=== PATIENT | female | born 1960 | race Caucasian/White ===

== ENCOUNTER 2016-10-22 12:50 | Emergency (ER) | payer OTHER ==
[~2016-10-22] VITALS: Ht 160 cm; Wt 68.0 kg
[2016-10-22 12:50] VITALS: BP_SYST 145
[~2016-10-22 12:50] MED LIST: CIPRO; TRAM50TA92 PO
[2016-10-22] MEDS ORDERED: ACET-1010 PO (13:31)
[2016-10-22] MEDS ORDERED: NEBI5TAB3 PO (13:31)
[2016-10-22] MEDS ORDERED: NEPH PO (13:31)
[2016-10-22] MEDS ORDERED: DOCU-144 PO (13:31)
[2016-10-22] MEDS ORDERED: AMLO5TAB4 PO (13:31)
[2016-10-22] MEDS ORDERED: SENN8.6T19 PO (13:31)
[2016-10-22] MEDS ORDERED: [UNRECOGNIZED DRUG - CODE] PO (13:31)
[2016-10-22] MEDS ORDERED: CAT.1 PO (13:31)
[2016-10-22] MEDS ORDERED: LOSA100T11 PO (13:31)
[2016-10-22] MEDS ORDERED: LEVO150T8 PO (13:31)
[2016-10-22] MEDS ORDERED: DIVA500T7 PO (13:31)
[2016-10-22] MEDS ORDERED: ACETAMINOPHEN 500 MG TABLET PO ONE (14:15)
[2016-10-22] MEDS ORDERED: LORazepam 2 MG/ML VIAL (FOR ER USE) IM ONE (14:15)
[2016-10-22 16:25] VITALS: BP_SYST 125
== END 2016-10-22 16:25 | disposition home or self-care (01) ==
LOC: SED 12:50
DX: M94.0 Chondrocostal junction syndrome [Tietze] (principal); Z88.0 Allergy status to penicillin
CPT/HCPCS: 96372; 99283; J2060

== ENCOUNTER 2018-04-04 15:11 | Emergency (ER) | payer BC, OTHER ==
[~2018-04-04] VITALS: Ht 160 cm; Wt 72.6 kg
[2018-04-04 15:21] VITALS: BP_SYST 117
[2018-04-04] MEDS ORDERED: PROMETHAZINE 6.25 MG/ CODEINE 10 MG/ 5 ML PO ONE (15:30)
[2018-04-04] MEDS ORDERED: IPRATROPIUM/ALBUTEROL SULFATE 3 ML AMPUL.NEB (DUONEB) INH ONE (15:30)
[2018-04-04] MEDS ORDERED: PREDNISONE 20 MG TABLET PO ONE (16:00)
[2018-04-04 17:05] VITALS: BP_SYST 134
== END 2018-04-04 17:05 | disposition home or self-care (01) ==
LOC: SED 15:11
DX: J20.9 Acute bronchitis, unspecified (principal); R03.0 Elevated blood-pressure reading, without diagnosis of hypertension; E11.9 Type 2 diabetes mellitus without complications; Z88.0 Allergy status to penicillin
CPT/HCPCS: 71045; 82962; 94640; 99283; J7512; J7620

== ENCOUNTER 2023-05-17 15:15 | Inpatient (IN) | payer BC ==
[~2023-05-17] VITALS: Ht 160 cm; Wt 72.6 kg
[2023-05-17 15:15] VITALS: BP_SYST 139; PULSE 89; RESP 19; TEMP 98.2; O2SAT 99
[~2023-05-17 15:15] MED LIST changes: -CIPRO; +IBUP-1969 PO; +OSEL75CA PO; +PHEDM120 PO; -TRAM50TA92 PO
[2023-05-17 15:51] LABS: BASOPHILS # (AUTO) 0.1 K/uL (0.0-0.2); BASOPHILS % (AUTO) 0.7 % (0.0-2.0); EOSINOPHILS # (AUTO) 0.1 K/uL (0.0-0.4); EOSINOPHILS % (AUTO) 1.1 % (0.0-4.0); HEMOGLOBIN 15.9 g/dL (12.0-16.0); LYMPHOCYTES # (AUTO) 2.8 K/uL (1.0-5.5); LYMPHOCYTES % (AUTO) 24.4 % (20.5-51.5); MEAN CORPUSCULAR HEMOGLOBIN 31 pg (27-31); MEAN CORPUSCULAR HGB CONC 34 % (32-36); MEAN CORPUSCULAR VOLUME 91 fL (79.0-98.0); MONOCYTES # (AUTO) 0.7 K/uL (0.0-1.0); MONOCYTES % (AUTO) 6.5 % (1.7-9.3); NEUTROPHILS # (AUTO) 7.6 K/uL (1.8-7.7); NEUTROPHILS % (AUTO) 67.3 % (40.0-70.0); PLATELET COUNT (AUTO) 350 K/uL (130-430); RED BLOOD CELL COUNT(AUTO) 5.19 MIL/uL (4.2-6.2); RED CELL DISTRIBUTION WIDTH 13.9 % (9.0-15.0); WHITE BLOOD COUNT (AUTO) 11.4 K/uL (4.8-10.8)
[2023-05-17] MEDS: NACL 0.9% 1,000 ML IV ONE (15:53)
[2023-05-17] MEDS: MORPHINE 2 MG/ML INJ. SYRINGE IVP ONE (15:54)
[2023-05-17] MEDS: ONDANSETRON HCL 4 MG/2 ML VIAL IVP ONE (15:54)
[2023-05-17 16:17] LABS: CALCIUM 9.6 mg/dL (8.4-11.0); CREATININE 0.94 mg/dL (0.55-1.30); POTASSIUM 3.3 mmol/L (3.5-5.1)
[2023-05-17] MEDS: MEROPENEM 1 GM in NS 100 ML IV ONE (16:45)
[2023-05-17] MEDS ORDERED: MEROPENEM 500 MG VIAL IV ONE (18:43)
[2023-05-17] MEDS: ONDANSETRON HCL 4 MG/2 ML VIAL IVP PRN (18:54)
[2023-05-17] MEDS: MORPHINE 4 MG INJ. 4 MG/ML VIAL IVP PRN (18:54)
[2023-05-17] MEDS ORDERED: PRED10TA (19:57)
[2023-05-17] MEDS ORDERED: AMLO5TAB92 PO (19:57)
[2023-05-17] MEDS ORDERED: LOSA50TA28 PO (19:57)
[2023-05-17] MEDS ORDERED: SEMA2PEN SUBCUT (19:57)
[2023-05-17] MEDS ORDERED: METF-381 PO (19:57)
[2023-05-17] MEDS ORDERED: ONDA-8 SL (19:57)
[2023-05-17] MEDS: D5/0.45 NS 1,000 ML IV SCH (19:58)
[2023-05-17 22:32] VITALS: BP_SYST 135; PULSE 91; RESP 16; TEMP 97.5
[2023-05-17] MEDS: metroNIDAZOLE 250 mg/NS 50 ML IV SCH (22:54)
[2023-05-18] VITALS (7 sets, daily range): BP systolic 113–138; PULSE 78–91; RESP 16–18; TEMP 97.8–98.9; O2SAT 91–98
[2023-05-18] MEDS: MEROPENEM 500 MG in NS 50 ML IV SCH (09:01)
[2023-05-18] MEDS ORDERED: NOR10 PO (10:58)
[2023-05-18] MEDS ORDERED: D5W 1,000 ML IV PRN (12:15)
[2023-05-18] MEDS ORDERED: GLUCOSE (DEXTROSE) ORAL GEL -Adults PO PRN (12:15)
[2023-05-18] MEDS ORDERED: DEXTROSE 50% JECT 50 ML DISP.SYRIN IVP PRN (12:15)
[2023-05-18] MEDS: KCL 20 mEq in 100 mL (PREMIX) 100 ML IV ONE (12:41)
[2023-05-18] MEDS: MORPHINE 2 MG/ML INJ. SYRINGE IVP PRN (16:12)
[2023-05-18] MEDS: INSULIN REGULAR, HUMAN 100 UNITS/ML, 3 ML VIAL (humuLIN R) SUBCUT PRN (17:07)
[2023-05-19] VITALS: BP_SYST 135; PULSE 96; RESP 18; TEMP 98.8; O2SAT 95
[2023-05-19 05:23] LABS: BASOPHILS % (AUTO) 0.7 % (0.0-2.0); EOSINOPHILS # (AUTO) 0.2 K/uL (0.0-0.4); EOSINOPHILS % (AUTO) 2.5 % (0.0-4.0); HEMATOCRIT 38.9 % (36-48); LYMPHOCYTES % (AUTO) 30.4 % (20.5-51.5); MEAN CORPUSCULAR HEMOGLOBIN 30 pg (27-31); MEAN CORPUSCULAR HGB CONC 34 % (32-36); MEAN CORPUSCULAR VOLUME 91 fL (79.0-98.0); MONOCYTES # (AUTO) 0.6 K/uL (0.0-1.0); MONOCYTES % (AUTO) 9.7 % (1.7-9.3); NEUTROPHILS # (AUTO) 3.8 K/uL (1.8-7.7); NEUTROPHILS % (AUTO) 56.7 % (40.0-70.0); PLATELET COUNT (AUTO) 287 K/uL (130-430); RED CELL DISTRIBUTION WIDTH 13.7 % (9.0-15.0); WHITE BLOOD COUNT (AUTO) 6.6 K/uL (4.8-10.8)
[2023-05-19 05:41] LABS: CALCIUM 8.3 mg/dL (8.4-11.0); CREATININE 0.56 mg/dL (0.55-1.30); POTASSIUM 3.2 mmol/L (3.5-5.1)
[2023-05-19 09:45] VITALS: O2SAT 96
[2023-05-19 12:50] VITALS: BP_SYST 108; PULSE 68; RESP 18; TEMP 98.2; O2SAT 93
[2023-05-19 16:25] VITALS: BP_SYST 123; PULSE 73; RESP 18; TEMP 97.9; O2SAT 99
[2023-05-19 20:00] VITALS: BP_SYST 140; PULSE 83; RESP 18; TEMP 98.5; O2SAT 95
[2023-05-20 00:23] VITALS: BP_SYST 137; PULSE 77; RESP 18; TEMP 97.3; O2SAT 97
[2023-05-20 07:48] VITALS: O2SAT 93
[2023-05-20 08:00] VITALS: BP_SYST 119; PULSE 79; RESP 17; TEMP 98; O2SAT 98
[2023-05-20 12:00] VITALS: BP_SYST 120; PULSE 55; RESP 18; TEMP 98.4; O2SAT 99
[2023-05-20] MEDS: POTASSIUM CHLORIDE 20 MEQ TABLET.ER PO ONE (13:31)
[2023-05-20 16:23] VITALS: BP_SYST 103; PULSE 78; RESP 16; TEMP 98.2; O2SAT 99
[2023-05-20 20:00] VITALS: BP_SYST 126; PULSE 82; RESP 18; TEMP 98.8; O2SAT 95
[2023-05-21 00:15] VITALS: BP_SYST 113; PULSE 71; RESP 16; TEMP 97.9; O2SAT 94
[2023-05-21 05:35] LABS: BASOPHILS % (AUTO) 0.5 % (0.0-2.0); EOSINOPHILS # (AUTO) 0.2 K/uL (0.0-0.4); EOSINOPHILS % (AUTO) 2.7 % (0.0-4.0); HEMATOCRIT 40.1 % (36-48); HEMOGLOBIN 13.4 g/dL (12.0-16.0); LYMPHOCYTES # (AUTO) 2.3 K/uL (1.0-5.5); LYMPHOCYTES % (AUTO) 32.5 % (20.5-51.5); MEAN CORPUSCULAR HEMOGLOBIN 30 pg (27-31); MEAN CORPUSCULAR HGB CONC 33 % (32-36); MEAN CORPUSCULAR VOLUME 91 fL (79.0-98.0); MONOCYTES # (AUTO) 0.7 K/uL (0.0-1.0); NEUTROPHILS # (AUTO) 3.8 K/uL (1.8-7.7); NEUTROPHILS % (AUTO) 54.3 % (40.0-70.0); PLATELET COUNT (AUTO) 320 K/uL (130-430); RED BLOOD CELL COUNT(AUTO) 4.39 MIL/uL (4.2-6.2); RED CELL DISTRIBUTION WIDTH 13.6 % (9.0-15.0)
[2023-05-21 05:50] LABS: CALCIUM 8.2 mg/dL (8.4-11.0); CREATININE 0.59 mg/dL (0.55-1.30); POTASSIUM 3.2 mmol/L (3.5-5.1)
[2023-05-21 08:07] VITALS: O2SAT 93
[2023-05-21 08:29] VITALS: BP_SYST 125; PULSE 73; RESP 16; TEMP 98.4; O2SAT 93
[2023-05-21 12:00] VITALS: BP_SYST 110; PULSE 74; RESP 16; TEMP 98.4; O2SAT 91
[2023-05-21 16:00] VITALS: BP_SYST 127; PULSE 78; RESP 16; TEMP 98.5; O2SAT 97
[2023-05-21] MEDS ORDERED: METR-154 PO (16:20)
[2023-05-21] MEDS ORDERED: LEVO250T73 PO (16:20)
[2023-05-21] MEDS: POTASSIUM CHLORIDE 20 MEQ TABLET.ER PO ONE (17:35)
[2023-05-21] MEDS: LOPERAMIDE HCL 2 MG CAPSULE PO ONE (17:36)
[2023-05-21 18:16] VITALS: BP_SYST 127; PULSE 78; RESP 16; TEMP 98.5; O2SAT 97
[2023-05-22 14:38] LABS: URINE URIC ACID, 24 HR 199.5 mg/24 hr
== END 2023-05-21 18:43 | disposition home or self-care (01) | DRG 392 ==
LOC: SED 15:15 → SMU 17:05
PROVIDERS: ADMIT Specialist; ATTEND Specialist
DX: K57.92 Diverticulitis of intestine, part unspecified, without perforation or abscess without bleeding (principal); D72.829 Elevated white blood cell count, unspecified; K76.0 Fatty (change of) liver, not elsewhere classified; K57.30 Diverticulosis of large intestine without perforation or abscess without bleeding; Z88.0 Allergy status to penicillin; Z79.899 Other long term (current) drug therapy; Z79.84 Long term (current) use of oral hypoglycemic drugs; Z87.19 Personal history of other diseases of the digestive system
CPT/HCPCS: 36415; 76700; 80048; 82340; 82948; 84560; 85025; 87230; 99285; J1815; J2185; J2270; J2405; J3480; J3490

== ENCOUNTER 2023-05-23 13:29 | Inpatient (IN) | payer BC ==
[~2023-05-23] VITALS: Ht 160 cm; Wt 72.6 kg
[~2023-05-23 13:29] MED LIST changes: -IBUP-1969 PO; +LEVO250T73 PO; +METF-381 PO; +METR-154 PO; +NOR10 PO; +ONDA-8 SL; -OSEL75CA PO; -PHEDM120 PO; +SEMA2PEN SUBCUT
[2023-05-23 13:38] VITALS: BP_SYST 163; PULSE 93; RESP 19; TEMP 98.2; O2SAT 98
[2023-05-23] MEDS: HYDROcodone/ACETAMIN 5-325 MG TAB (NORCO/ VICODIN) PO ONE (16:01)
[2023-05-23 16:31] LABS: BASOPHILS % (AUTO) 0.5 % (0.0-2.0); EOSINOPHILS # (AUTO) 0.1 K/uL (0.0-0.4); EOSINOPHILS % (AUTO) 1.5 % (0.0-4.0); HEMATOCRIT 44.5 % (36-48); LYMPHOCYTES # (AUTO) 2.2 K/uL (1.0-5.5); LYMPHOCYTES % (AUTO) 26.3 % (20.5-51.5); MEAN CORPUSCULAR HEMOGLOBIN 31 pg (27-31); MEAN CORPUSCULAR HGB CONC 34 % (32-36); MEAN CORPUSCULAR VOLUME 91 fL (79.0-98.0); MONOCYTES # (AUTO) 0.7 K/uL (0.0-1.0); NEUTROPHILS # (AUTO) 5.2 K/uL (1.8-7.7); NEUTROPHILS % (AUTO) 63.7 % (40.0-70.0); PLATELET COUNT (AUTO) 320 K/uL (130-430); RED BLOOD CELL COUNT(AUTO) 4.88 MIL/uL (4.2-6.2); RED CELL DISTRIBUTION WIDTH 13.4 % (9.0-15.0); WHITE BLOOD COUNT (AUTO) 8.2 K/uL (4.8-10.8)
[2023-05-23 16:54] LABS: CREATININE 0.66 mg/dL (0.55-1.30); POTASSIUM 3.5 mmol/L (3.5-5.1)
[2023-05-23 16:59] LABS: INR 1.1 (0.8-1.2); PROTHROMBIN TIME 10.9 SECS (9.5-12.5)
[2023-05-23] MEDS ORDERED: GLUCOSE (DEXTROSE) ORAL GEL -Adults PO PRN (17:00)
[2023-05-23] MEDS ORDERED: HYDROcodone/ACETAMIN 5-325 MG TAB (NORCO/ VICODIN) PO PRN (17:00)
[2023-05-23] MEDS ORDERED: HYDROcodone/ACETAMIN 10-325 MG TAB PO PRN (17:00)
[2023-05-23] MEDS ORDERED: ACETAMINOPHEN 325 MG TABLET PO PRN ×2 (17:00→17:15)
[2023-05-23] MEDS ORDERED: DEXTROSE 50% JECT 50 ML DISP.SYRIN IVP PRN (17:00)
[2023-05-23] MEDS: HEPARIN SODIUM,PORCINE 5,000 UNITS/ML VIAL IVP ONE (17:16)
[2023-05-23] MEDS: HEPARIN 25,000 UNITS/D5W 250ML 250 ML IV ONE (17:39)
[2023-05-23 18:11] VITALS: BP_SYST 141; PULSE 88; RESP 16; TEMP 98.8; O2SAT 96
[2023-05-23] MEDS: MORPHINE 2 MG/ML INJ. SYRINGE IVP PRN (18:40)
[2023-05-23 20:00] VITALS: BP_SYST 139; PULSE 88; RESP 18; TEMP 98; O2SAT 94
[2023-05-23] MEDS: INSULIN REGULAR, HUMAN 100 UNITS/ML, 3 ML VIAL (humuLIN R) SUBCUT PRN (20:17)
[2023-05-23] MEDS: amLODIPine BESYLATE 10 MG TABLET PO ONE (21:35)
[2023-05-23] MEDS: metroNIDAZOLE 500 MG TABLET PO SCH (21:35)
[2023-05-24 00:40] VITALS: BP_SYST 149; PULSE 89; RESP 18; TEMP 97.5; O2SAT 94
[2023-05-24 06:31] LABS: BASOPHILS % (AUTO) 0.5 % (0.0-2.0); EOSINOPHILS # (AUTO) 0.2 K/uL (0.0-0.4); HEMATOCRIT 42.1 % (36-48); HEMOGLOBIN 14.1 g/dL (12.0-16.0); LYMPHOCYTES # (AUTO) 2.1 K/uL (1.0-5.5); LYMPHOCYTES % (AUTO) 27.2 % (20.5-51.5); MEAN CORPUSCULAR HEMOGLOBIN 31 pg (27-31); MEAN CORPUSCULAR HGB CONC 34 % (32-36); MEAN CORPUSCULAR VOLUME 91 fL (79.0-98.0); MONOCYTES # (AUTO) 0.8 K/uL (0.0-1.0); MONOCYTES % (AUTO) 10.4 % (1.7-9.3); NEUTROPHILS # (AUTO) 4.6 K/uL (1.8-7.7); NEUTROPHILS % (AUTO) 59.9 % (40.0-70.0); PLATELET COUNT (AUTO) 349 K/uL (130-430); RED BLOOD CELL COUNT(AUTO) 4.61 MIL/uL (4.2-6.2); RED CELL DISTRIBUTION WIDTH 13.5 % (9.0-15.0); WHITE BLOOD COUNT (AUTO) 7.7 K/uL (4.8-10.8)
[2023-05-24 07:17] LABS: ALBUMIN 2.9 g/dL (3.4-4.8); CALCIUM 8.3 mg/dL (8.4-11.0); CREATININE 0.55 mg/dL (0.55-1.30); POTASSIUM 3.4 mmol/L (3.5-5.1); TOTAL BILIRUBIN 0.5 mg/dL (0.0-1.0); TOTAL PROTEIN, SERUM 6.7 g/dL (6.4-8.3)
[2023-05-24 07:45] VITALS: BP_SYST 137; PULSE 89; RESP 16; TEMP 97; O2SAT 97
[2023-05-24 08:00] VITALS: O2SAT 98
[2023-05-24] MEDS: ENOXAPARIN SODIUM 80 MG/0.8 ML SYRINGE SUBCUT SCH (08:41)
[2023-05-24] MEDS: amLODIPine BESYLATE 10 MG TABLET PO SCH (08:42)
[2023-05-24] MEDS: levoFLOXacin 250 MG TABLET PO SCH (10:41)
[2023-05-24 11:19] VITALS: BP_SYST 122; PULSE 89; RESP 16; TEMP 97.2; O2SAT 96
[2023-05-24] MEDS: ONDANSETRON HCL 4 MG/2 ML VIAL IVP PRN (11:24)
[2023-05-24] MEDS ORDERED: IBUP-2018 PO (15:30)
[2023-05-24 15:55] VITALS: BP_SYST 114; PULSE 88; RESP 17; TEMP 98; O2SAT 100
[2023-05-24 15:59] VITALS: BP_SYST 114; PULSE 88; RESP 16; TEMP 98; O2SAT 100
[2023-05-24] MEDS ORDERED: ENOXAPARIN SODIUM 80 MG/0.8 ML SYRINGE SUBCUT SCH (21:00)
== END 2023-05-24 16:30 | disposition home or self-care (01) | DRG 300 ==
LOC: SED 13:29 → STU 16:57 → SMU 05-24 14:36
PROVIDERS: ADMIT Family Medicine; ATTEND Family Medicine
DX: I80.8 Phlebitis and thrombophlebitis of other sites (principal); I82.611 Acute embolism and thrombosis of superficial veins of right upper extremity; Z88.0 Allergy status to penicillin; E11.9 Type 2 diabetes mellitus without complications; I10 Essential (primary) hypertension; E78.5 Hyperlipidemia, unspecified
CPT/HCPCS: 36415; 80048; 80053; 82948; 85025; 85610; 85730; 87081; 93971; 99285; G0378; J1644; J1650; J1815; J2270; J2405

== ENCOUNTER 2023-06-06 16:23 | Emergency (ER) | payer BC ==
[~2023-06-06] VITALS: Ht 160 cm; Wt 71.7 kg
[~2023-06-06 16:23] MED LIST changes: +IBUP-2018 PO
[2023-06-06 16:29] VITALS: BP_SYST 164; PULSE 88; RESP 18; TEMP 97.4; O2SAT 96
[2023-06-06] MEDS: KETOROLAC TROMETHAMINE 60 MG/2 ML VIAL IM ONE (18:45)
[2023-06-06 19:06] LABS: BASOPHILS # (AUTO) 0.1 K/uL (0.0-0.2); BASOPHILS % (AUTO) 0.7 % (0.0-2.0); EOSINOPHILS # (AUTO) 0.2 K/uL (0.0-0.4); EOSINOPHILS % (AUTO) 1.9 % (0.0-4.0); HEMATOCRIT 44.8 % (36-48); HEMOGLOBIN 14.9 g/dL (12.0-16.0); LYMPHOCYTES # (AUTO) 2.9 K/uL (1.0-5.5); LYMPHOCYTES % (AUTO) 31.4 % (20.5-51.5); MEAN CORPUSCULAR HEMOGLOBIN 30 pg (27-31); MEAN CORPUSCULAR HGB CONC 33 % (32-36); MEAN CORPUSCULAR VOLUME 90 fL (79.0-98.0); MONOCYTES # (AUTO) 0.6 K/uL (0.0-1.0); MONOCYTES % (AUTO) 6.8 % (1.7-9.3); NEUTROPHILS # (AUTO) 5.5 K/uL (1.8-7.7); NEUTROPHILS % (AUTO) 59.2 % (40.0-70.0); PLATELET COUNT (AUTO) 457 K/uL (130-430); RED BLOOD CELL COUNT(AUTO) 4.99 MIL/uL (4.2-6.2); RED CELL DISTRIBUTION WIDTH 13.4 % (9.0-15.0); WHITE BLOOD COUNT (AUTO) 9.2 K/uL (4.8-10.8)
[2023-06-06 19:17] LABS: CALCIUM 9.1 mg/dL (8.4-11.0); CREATININE 0.65 mg/dL (0.55-1.30); POTASSIUM 3.3 mmol/L (3.5-5.1)
[2023-06-06 19:19] LABS: PROTHROMBIN TIME 10.4 SECS (9.5-12.5)
[2023-06-06] MEDS ORDERED: TRAM50TA2 PO (20:21)
[2023-06-06] MEDS ORDERED: IBUP-1969 PO (20:21)
[2023-06-06 20:35] VITALS: BP_SYST 151; PULSE 82; RESP 18; TEMP 98.7; O2SAT 99
== END 2023-06-06 20:35 | disposition home or self-care (01) ==
LOC: SED 16:23
DX: I80.8 Phlebitis and thrombophlebitis of other sites (principal); J45.909 Unspecified asthma, uncomplicated; E11.9 Type 2 diabetes mellitus without complications; I10 Essential (primary) hypertension; Z88.0 Allergy status to penicillin; Z79.899 Other long term (current) drug therapy
CPT/HCPCS: 99285; 93971; 80048; 85025; 85610; 85730; 36415; 96372; J1885

== ENCOUNTER 2023-07-18 10:14 | Emergency (ER) | payer BC ==
[~2023-07-18] VITALS: Ht 160 cm; Wt 72.6 kg
[~2023-07-18 10:14] MED LIST changes: +IBUP-1969 PO; +TRAM50TA2 PO
[2023-07-18 10:29] VITALS: BP_SYST 140; PULSE 92; RESP 18; TEMP 98; O2SAT 96
[2023-07-18] MEDS: KETOROLAC TROMETHAMINE 30 MG VIAL IM ONE (12:27)
[2023-07-18] MEDS ORDERED: IBUP-1969 PO (13:47)
[2023-07-18 14:39] VITALS: BP_SYST 128; PULSE 66; RESP 18; TEMP 97.2; O2SAT 96
== END 2023-07-18 14:32 | disposition home or self-care (01) ==
LOC: SED 10:14
DX: M79.10 Myalgia, unspecified site (principal); M79.661 Pain in right lower leg; M79.662 Pain in left lower leg; J45.909 Unspecified asthma, uncomplicated; E11.9 Type 2 diabetes mellitus without complications; I10 Essential (primary) hypertension; Z88.0 Allergy status to penicillin; Z79.899 Other long term (current) drug therapy
CPT/HCPCS: 99285; 93970; 96372; J1885

== ENCOUNTER 2023-09-15 11:35 | Emergency (ER) | payer BC ==
[~2023-09-15] VITALS: Ht 160 cm; Wt 72.6 kg
[2023-09-15 11:38] VITALS: BP_SYST 173; PULSE 96; RESP 16; TEMP 97.9; O2SAT 96
[2023-09-15 12:35] LABS: BASOPHILS % (AUTO) 0.7 % (0.0-2.0); EOSINOPHILS # (AUTO) 0.1 K/uL (0.0-0.4); HEMATOCRIT 44.3 % (36-48); HEMOGLOBIN 14.6 g/dL (12.0-16.0); LYMPHOCYTES # (AUTO) 2.4 K/uL (1.0-5.5); LYMPHOCYTES % (AUTO) 32.9 % (20.5-51.5); MEAN CORPUSCULAR HEMOGLOBIN 30 pg (27-31); MEAN CORPUSCULAR HGB CONC 33 % (32-36); MEAN CORPUSCULAR VOLUME 89 fL (79.0-98.0); MONOCYTES # (AUTO) 0.6 K/uL (0.0-1.0); NEUTROPHILS # (AUTO) 4.2 K/uL (1.8-7.7); NEUTROPHILS % (AUTO) 56.4 % (40.0-70.0); PLATELET COUNT (AUTO) 325 K/uL (130-430); RED BLOOD CELL COUNT(AUTO) 4.96 MIL/uL (4.2-6.2); RED CELL DISTRIBUTION WIDTH 14.2 % (9.0-15.0); WHITE BLOOD COUNT (AUTO) 7.4 K/uL (4.8-10.8)
[2023-09-15 12:39] LABS: CALCIUM 8.5 mg/dL (8.4-11.0); CREATININE 0.8 mg/dL (0.55-1.30); POTASSIUM 3.8 mmol/L (3.5-5.1)
[2023-09-15] MEDS ORDERED: ONDANSETRON HCL 4 MG/2 ML VIAL ONE (13:00)
[2023-09-15] MEDS: hydrALAZINE HCL 20 MG/ML VIAL IVP ONE (13:24)
[2023-09-15] MEDS: KETOROLAC TROMETHAMINE 30 MG VIAL IVP ONE (13:25)
[2023-09-15] MEDS: ONDANSETRON HCL 4 MG/2 ML VIAL IVP ONE (13:26)
[2023-09-15] MEDS ORDERED: MORPHINE 4 MG INJ. 4 MG/ML VIAL IVP ONE (16:15)
[2023-09-15] MEDS ORDERED: ONDANSETRON HCL 4 MG/2 ML VIAL IVP ONE (16:15)
[2023-09-15] MEDS ORDERED: LIDOCAINE PATCH 5% 1 EA TP ONE (16:15)
[2023-09-15] MEDS ORDERED: DICL50TA9 PO (16:37)
[2023-09-15] MEDS ORDERED: HYDR-3927 PO (16:37)
[2023-09-15] MEDS ORDERED: LIDO1ADH22 TP (16:37)
[2023-09-15 17:45] VITALS: BP_SYST 132; PULSE 97; RESP 18; TEMP 98.7; O2SAT 96
== END 2023-09-15 17:08 | disposition home or self-care (01) ==
LOC: SED 11:35
DX: M51.37 Other intervertebral disc degeneration, lumbosacral region (principal); M51.27 Other intervertebral disc displacement, lumbosacral region; M79.652 Pain in left thigh; M79.651 Pain in right thigh; J45.909 Unspecified asthma, uncomplicated; E11.9 Type 2 diabetes mellitus without complications; I10 Essential (primary) hypertension; E78.5 Hyperlipidemia, unspecified; Z88.0 Allergy status to penicillin; Z79.899 Other long term (current) drug therapy; Z79.2 Long term (current) use of antibiotics
CPT/HCPCS: 99285; 72131; 96374; 96375; 80048; 85025; 36415; 74177; J0360; J1885; J2405; J2270; Q9967

== ENCOUNTER 2023-10-29 18:31 | Emergency (ER) | payer BC ==
[~2023-10-29] VITALS: Ht 160 cm; Wt 72.6 kg
[~2023-10-29 18:31] MED LIST changes: +DICL50TA9 PO; +HYDR-3927 PO; +LIDO1ADH22 TP
[2023-10-29 19:21] VITALS: BP_SYST 148; PULSE 101; RESP 20; TEMP 98.3; O2SAT 94
[2023-10-29] MEDS: MORPHINE 4 MG INJ. 4 MG/ML VIAL IVP ONE (23:45)
[2023-10-29] MEDS: ONDANSETRON HCL 4 MG/2 ML VIAL IVP ONE (23:46)
[2023-10-30 02:08] LABS: BILIRUBIN,URINE NEGATIVE (NEGATIVE); BLOOD, URINE NEGATIVE (NEGATIVE); CLARITY/URINE CLEAR (CLEAR); COLOR,URINE YELLOW (YELLOW); GLUCOSE,URINE NEGATIVE (NEGATIVE); KETONES,URINE NEGATIVE (NEGATIVE); LEUKOCYTE ESTERASE ,URINE NEGATIVE (NEGATIVE); NITRITE, URINE NEGATIVE (NEGATIVE); PROTEIN URINE NEGATIVE (NEGATIVE); UROBILINOGEN,URINE 0.2 (0.2-1.0)
[2023-10-30] MEDS ORDERED: HYDR-3917 PO (02:09)
[2023-10-30] MEDS ORDERED: IBUP-1969 PO (02:09)
[2023-10-30] MEDS ORDERED: ACET-2634 PO (02:09)
[2023-10-30 02:35] VITALS: RESP 18; TEMP 98; O2SAT 95
[2023-10-30] MEDS: HYDROcodone/ACETAMIN 5-325 MG TAB (NORCO/ VICODIN) PO ONE (02:41)
[2023-10-30 05:12] VITALS: BP_SYST 156; PULSE 89
[2023-11-03] MEDS ORDERED: HYDR-3927 PO (11:26)
== END 2023-10-30 03:00 | disposition home or self-care (01) ==
LOC: SED 18:31
DX: M54.40 Lumbago with sciatica, unspecified side (principal); G57.83 Other specified mononeuropathies of bilateral lower limbs; J45.909 Unspecified asthma, uncomplicated; E11.9 Type 2 diabetes mellitus without complications; I10 Essential (primary) hypertension; Z88.0 Allergy status to penicillin
CPT/HCPCS: 99285; 96374; 72131; 93971; 96375; 81001; 81003; J2405; J2270

== ENCOUNTER 2023-12-13 14:10 | Emergency (ER) | payer BC ==
[~2023-12-13] VITALS: Ht 160 cm; Wt 70.3 kg
[~2023-12-13 14:10] MED LIST changes: +ACET-2634 PO; +HYDR-3917 PO
[2023-12-13 14:18] VITALS: BP_SYST 157; PULSE 110; RESP 18; TEMP 98.3; O2SAT 94
[2023-12-13 15:29] LABS: BILIRUBIN,URINE 1+ (NEGATIVE); BLOOD, URINE NEGATIVE (NEGATIVE); CLARITY/URINE CLEAR (CLEAR); COLOR,URINE YELLOW (YELLOW); GLUCOSE,URINE NEGATIVE (NEGATIVE); KETONES,URINE 2+ (NEGATIVE); LEUKOCYTE ESTERASE ,URINE NEGATIVE (NEGATIVE); NITRITE, URINE NEGATIVE (NEGATIVE); PROTEIN URINE NEGATIVE (NEGATIVE); UROBILINOGEN,URINE 0.2 (0.2-1.0)
[2023-12-13 16:23] LABS: BASOPHILS % (AUTO) 0.4 % (0.0-2.0); EOSINOPHILS # (AUTO) 0.1 K/uL (0.0-0.4); EOSINOPHILS % (AUTO) 1.1 % (0.0-4.0); HEMATOCRIT 46.3 % (36-48); HEMOGLOBIN 15.4 g/dL (12.0-16.0); LYMPHOCYTES # (AUTO) 2.6 K/uL (1.0-5.5); LYMPHOCYTES % (AUTO) 29.8 % (20.5-51.5); MEAN CORPUSCULAR HEMOGLOBIN 30 pg (27-31); MEAN CORPUSCULAR HGB CONC 33 % (32-36); MEAN CORPUSCULAR VOLUME 91 fL (79.0-98.0); MONOCYTES # (AUTO) 0.8 K/uL (0.0-1.0); NEUTROPHILS # (AUTO) 5.2 K/uL (1.8-7.7); NEUTROPHILS % (AUTO) 59.7 % (40.0-70.0); PLATELET COUNT (AUTO) 337 K/uL (130-430); RED BLOOD CELL COUNT(AUTO) 5.11 MIL/uL (4.2-6.2); RED CELL DISTRIBUTION WIDTH 13.3 % (9.0-15.0); WHITE BLOOD COUNT (AUTO) 8.7 K/uL (4.8-10.8)
[2023-12-13 16:35] LABS: ALBUMIN 3.7 g/dL (3.4-4.8); BILIRUBIN,DIRECT 0.2 mg/dL (0.0-0.3); CALCIUM 9.5 mg/dL (8.4-11.0); CREATININE 0.91 mg/dL (0.55-1.30); POTASSIUM 3.8 mmol/L (3.5-5.1); TOTAL BILIRUBIN 0.5 mg/dL (0.0-1.0); TOTAL PROTEIN, SERUM 7.8 g/dL (6.4-8.3)
[2023-12-13] MEDS ORDERED: ANURH RC (17:04)
[2023-12-13] MEDS ORDERED: HYDR-3921 PO (17:04)
[2023-12-13] MEDS ORDERED: ONDA-8 TL (17:04)
[2023-12-13] MEDS: HYDROcodone/ACETAMIN 7.5-325 MG TAB PO ONE (17:24)
[2023-12-13] MEDS: HYDROcodone/ACETAMIN 5-325 MG TAB (NORCO/ VICODIN) PO ONE (17:25)
[2023-12-13] MEDS ORDERED: HYDR-3927 PO (17:33)
[2023-12-13 17:39] VITALS: BP_SYST 151; PULSE 109; RESP 19; TEMP 98.1; O2SAT 95
== END 2023-12-13 17:38 | disposition home or self-care (01) ==
LOC: SED 14:10
DX: K62.5 Hemorrhage of anus and rectum (principal); K64.4 Residual hemorrhoidal skin tags; R10.30 Lower abdominal pain, unspecified; J45.909 Unspecified asthma, uncomplicated; E11.9 Type 2 diabetes mellitus without complications; I10 Essential (primary) hypertension; E78.00 Pure hypercholesterolemia, unspecified; E78.5 Hyperlipidemia, unspecified; Z88.0 Allergy status to penicillin; Z79.84 Long term (current) use of oral hypoglycemic drugs; Z79.899 Other long term (current) drug therapy
CPT/HCPCS: 36415; 80048; 80076; 81001; 81003; 83690; 85025; 99284